=== PATIENT | male | born 2000 | race Caucasian/White ===

== ENCOUNTER 2018-06-03 23:12 | Emergency (ER) | payer BC, SELFPAY ==
[2018-06-03 23:13] VITALS: BP 132/97; PULSE 90; RESP 16; TEMP 36.5; O2SAT 98; BMI 22.8
[2018-06-03 23:51] VITALS: BP 106/72; PULSE 72; RESP 16; O2SAT 98
--- NOTE | 2018-06-04 00:12 | ED.VISSUMM ---
- ER Visit Summary Date of Service: 06/04/18 Chief Complaint: Acute allergic reaction History of Present Illness: The patient is a 17 M history of peanut allergy. Said he ate some [place] food the night he thinks he needed with peanuts but there were pain is directly in the food. He ate dinner around 7 PM. He started having a reaction around 720 7:30 PM. Said he threw up once. About 20 minutes after that he started getting itching swelling of his face swelling of his lips and tongue. He said he got very concerned he has had single beer allergic reactions before and he used his EpiPen. Said he feels much better now he just came in to be evaluated. No trouble swallowing or breathing. Denies any other complaints. Physical Examination: Well-appearing 17-year-old male. No acute distress. Vital signs are stable and afebrile. His heart rate 72. HEENT exam unremarkable except except minimal swelling of his uvula. Airway is patent. No stridor. No drooling. No trouble swallowing or breathing. He can easily drink water. Lips and tongue are not swollen at all. Neck nontender. Trachea midline. Lungs clear to auscultation bilaterally. No wheezing. Heart regular rhythm rate about 70. Abdomen soft nontender. Patient is moving all 4 extremities. Neurologically is awake and alert. Skin there is no rashes at this time. No hives. Test Results: None Emergency Department Course and Treatment: Patient is doing well after his allergic reaction. He will be given 1 dose of p.o. prednisone and observe for period time and discharged home. Treatment Plan: Benadryl as needed. Return if worse. Disposition: Discharge Impression: Acute allergic reaction to peanuts This note was generated with [employer] dictation software. It may contain incorrect words, spelling, and punctuation that were not noted in review of the chart prior to signing
--- NOTE | 2018-06-04 00:14 | ED.DEP ---
ED Disposition - Plan for ED Patient: Disposition: Home or Assisted Living Instructions: ED Allergic Reaction General Other Additional Instructions: He should be fine the rest of the night. He is Benadryl itching. Return if he started having significant swelling of your lips, tongue or trouble breathing but I do not expect that to be the case.
[2018-06-04] MEDS: predniSONE 20 MG Tablet 40 MG PO (00:21)
[2018-06-04 01:03] VITALS: BP 110/73; PULSE 74; RESP 15; O2SAT 98
== END 2018-06-04 01:05 | disposition home or self-care (01) ==
LOC: ED 06-04 00:28
PROVIDERS: Emergency Provider Emergency Medicine
DX: T78.1XXA Other adverse food reactions, not elsewhere classified, initial encounter (principal); R22.0 Localized swelling, mass and lump, head; L29.8 Other pruritus; X58.XXXA Exposure to other specified factors, initial encounter
CPT/HCPCS: 99283